=== PATIENT | male | born 1960 | race Caucasian/White ===

== ENCOUNTER 2016-06-17 00:28 | Emergency (ER) | payer OTHER ==
--- NOTE | 2016-06-17 04:16 | DIAGNOSTIC IMAGING REPORT ---
PROCEDURE: XR CHEST 1 VIEW INDICATION: CHEST PAIN TECHNIQUE: Portable AP view (0050 hours). COMPARISON: None. FINDINGS: Allowing for suboptimal inspiration, lungs are clear. Heart and mediastinum are normal. Thorax is normal. IMPRESSION: 1. Negative chest.
--- NOTE | 2016-06-17 08:43 | ED CLINICAL REPORT ---
Clinical Report - Physicians/Mid Levels [facility] [address] [place] [address] 06/17/2016 0:29 Patient: LAWANDA WHITFIELD Time Seen: 00:41. Arrived- By private vehicle. Historian- patient. HISTORY OF PRESENT ILLNESS Chief Complaint: CHEST PAIN. At its maximum, severity described as 3 / 10. When seen in the E.D., severity described as 0 / 10. Modifying factors- worsened by movement. It is described as aching and it is described as located in the central chest area and radiating to the left upper extremity (earlier this evening). This started about 24 hours ago and is now gone. It was abrupt in onset and has been intermittent and waxing/waning. Onset during heavy exertion. The patient has had nausea. No vomiting, difficulty breathing or diaphoresis. Similar symptoms previously: None. REVIEW OF SYSTEMS No chills, fever, sweats, calf pain or cough. No difficulty breathing, pedal edema, palpitations, abdominal pain or black stools. No bloody stools, constipation, diarrhea or vomiting. The patient has had fatigue, nausea, frequency and diabetic symptoms, including polyuria and fatigue. All systems otherwise negative, except as recorded above. PAST HISTORY Negative. PCP - Eva. Problems: no known problems. Additional Surgeries: no known surgeries. Medications: None. Allergies: No Known Drug Allergy. SOCIAL HISTORY Never smoker. No alcohol use or drug use. Is a local resident. He lives with spouse. FAMILY HISTORY Cancer in first-degree relative (father). ADDITIONAL NOTES The nursing notes have been reviewed. PHYSICAL EXAM Vital Signs: 06/17/2016 00:31 BP: 165/102. HR: 88. RR: 20. O2 saturation: 98%. Pain level now: 3/10. Have been reviewed. Appearance: Alert. Eyes: Pupils equal, round and reactive to light. ENT: Pharynx normal. Neck: Normal inspection. CVS: Normal heart rate and rhythm. Heart sounds normal. Respiratory: No respiratory distress. Breath sounds normal. Abdomen: Soft and nontender. Bowel sounds normal. No organomegaly. No mass. Back: Normal external inspection. Skin: Skin warm and dry. Normal skin color. Normal skin turgor. Extremities: Extremities exhibit normal ROM. No calf tenderness. No lower extremity edema. LABS, X-RAYS, AND EKG EKG: No acute process. Normal EKG. Rate: 90. Prior EKG unavailable. The study has been independently viewed by me. Chest X-ray: No acute disease. The X-rays were independently viewed by me. Laboratory Tests: UA-Culture if indicated: (SAVANA: 06/17/2016 01:20) ( [facility] [place]17[place] 01:50) Final results Test Result Flag Units (Reference) URINE COLOR YELLOW URINE APPEARANCE CLEAR URINE GLUCOSE 2+ (NEGATIVE) URINE BILIRUBIN NEGATIVE (NEGATIVE) URINE KETONE NEGATIVE (NEGATIVE) URINE SPECIFIC GRAVITY >= 1.030 (1.010-1.030) URINE PH 6.0 (5.0-8.0) URINE PROTEIN NEGATIVE (NEGATIVE) URINE UROBILINOGEN 0.2 EU/dL (0.2-1.0) URINE NITRITE NEGATIVE (NEGATIVE) URINE BLOOD NEGATIVE (NEGATIVE) URINE LEUK ESTERASE NEGATIVE (NEGATIVE) URINE RBC RARE rbc/hpf (0-1) URINE WBC RARE wbc/hpf (0-1) URINE EPITHELIAL CELLS NONE SEEN EPI/hpf (0-5) URINE BACTERIA NONE SEEN (NONE SEEN) URINE COMMENT CULT NOT INDICATED URINE CULTURES ARE SET-UP BASED ON THE FOLLOWING CRITERIA:POSITIVE NITRITEPOSITIVE LEUKOCYTE ESTERASEGREATER THAN 10 WHITE BLOOD CELLSMODERATE (2+) OR GREATER BACTERIA CBC w Diff: (SAVANA: 06/17/2016 00:35) ( [facility] [place] 06/17/2016 00:51) Final results Test Result Flag Units (Reference) WHITE BLOOD COUNT 7.1 K/uL (4.5-11.5) RED BLOOD COUNT 5.01 M/uL (4.50-5.90) HEMOGLOBIN 14.8 gm/dL (13.5-17.5) HEMATOCRIT 43.9 % (41.0-53.0) MEAN CELL VOLUME 88 fL (80-100) MEAN CORPUSCULAR HGB 30 pg (26-34) MEAN CORPUSCULAR HGB CONC 34 g/dL (31-37) RED CELL DISTRIBUTION WIDTH 13.1 % (11.6-14.8) PLATELET COUNT 290 K/uL (150-400) NEUTROPHIL % 48.7 L % (50-75) LYMPH % 36.4 % (25-40) MONO % 10.8 % (3-14) EOSINOPHIL % 3.8 % (0-4) BASOPHIL % 0.3 % (0-2) CPK: (SAVANA: 06/17/2016 06:25) ( MsgRcvd 06/17/2016 06:58) Final results Test Result Flag Units (Reference) CPK 74 U/L (24-260) TROPONIN I <0.05 L ng/mL (0.00-1.5) TROPONIN REFERENCE RANGE:<0.1 NEGATIVE0.1-1.5 INDETERMINANT>1.5 POSITIVE CMP: (ASVANA: 06/17/2016 00:35) ( VagRcvd 06/17/2016 01:05) Final results Test Result Flag Units (Reference) GLUCOSE 257 H mg/dL (70-110) BUN 21 H mg/dL (7-18) CREATININE 1.1 mg/dL (0.6-1.3) Estimated GFR >60 mL/min Estimated GFR- >60 mL/min Note: Persistent reduction over 3 months in eGFR<60 mL/min/1.73 m2 defines CKD. Patients with eGFR values>=60 mL/min/1.73 m2 may also have CKD if evidence ofpersistent proteinuria. Additional information may be foundat www.kidney.org. SODIUM 139 mmol/L (136-145) POTASSIUM 3.8 mmol/L (3.5-5.1) CHLORIDE 104 mmol/L (98-107) CARBON DIOXIDE 25 mmol/L (21-32) CALCIUM 8.9 mg/dL (8.5-10.1) TOTAL PROTEIN 7.0 g/dL (6.4-8.2) ALBUMIN 3.9 g/dL (3.3-5.0) BILIRUBIN, TOTAL 0.3 mg/dL (0.0-1.0) ALKALINE PHOSPHATASE 81 U/L (46-116) AST (SGOT) 18 U/L (15-37) ALT (SGPT) 45 U/L (12-78) LIPASE 228 U/L (73-393) AMYLASE 37 U/L (25-115) CPK 86 U/L (24-260) TROPONIN I <0.05 L ng/mL (0.00-1.5) TROPONIN REFERENCE RANGE:<0.1 NEGATIVE0.1-1.5 INDETERMINANT>1.5 POSITIVE . PROGRESS AND PROCEDURES Course of Care: Patient is stable. Consult obtained from internal medicine. Dr. Quiroz - Neto has agreed to do a stress test for the patient today. Case discussed. Phone consult only. Will see patient in the hospital today. Patient/family counseled. Old medical records ordered. Old records unavailable. Disposition: Discharged. Condition: stable. CLINICAL IMPRESSION Chest pain. Type 2 diabetes with hyperglycemia. INSTRUCTIONS Rest. Avoid stimulants (such as cigarettes, coffee, cold medicines, sinus medicines, street drugs). (return to the front end technician at the hospital at 11:45 AM today. Your scheduled for a stress test at noon. Please arrive a bit early in order to go through registration as discussed.). Warnings: Further evaluation is necessary. GENERAL WARNINGS: Return or contact your physician immediately if your condition worsens or changes unexpectedly, if not improving as expected, or if other problems arise. Prescription Medications: Metformin 500 mg: take 1 orally every 24 hours. Dispense thirty (30). No refills. Understanding of the discharge instructions verbalized by patient. Follow-up with: Seun Thacker MD, [facility], , [facility], [address] [place] [address] Follow up Tuesday in four days. Call for an appointment. (Electronically signed by Angelo Arrieta MD 06/18/2016 9:30)
--- NOTE | 2016-06-17 08:43 | ED CLINICAL REPORT ---
Clinical Report - Physicians/Mid Levels [facility] [address] [place] [address] 06/17/2016 0:29 Patient: LAWANDA WHITFIELD Time Seen: 00:41. Arrived- By private vehicle. Historian- patient. HISTORY OF PRESENT ILLNESS Chief Complaint: CHEST PAIN. At its maximum, severity described as 3 / 10. When seen in the E.D., severity described as 0 / 10. Modifying factors- worsened by movement. It is described as aching and it is described as located in the central chest area and radiating to the left upper extremity (earlier this evening). This started about 24 hours ago and is now gone. It was abrupt in onset and has been intermittent and waxing/waning. Onset during heavy exertion. The patient has had nausea. No vomiting, difficulty breathing or diaphoresis. Similar symptoms previously: None. REVIEW OF SYSTEMS No chills, fever, sweats, calf pain or cough. No difficulty breathing, pedal edema, palpitations, abdominal pain or black stools. No bloody stools, constipation, diarrhea or vomiting. The patient has had fatigue, nausea, frequency and diabetic symptoms, including polyuria and fatigue. All systems otherwise negative, except as recorded above. PAST HISTORY Negative. PCP - Eva. Problems: no known problems. Additional Surgeries: no known surgeries. Medications: None. Allergies: No Known Drug Allergy. SOCIAL HISTORY Never smoker. No alcohol use or drug use. Is a local resident. He lives with spouse. FAMILY HISTORY Cancer in first-degree relative (father). ADDITIONAL NOTES The nursing notes have been reviewed. PHYSICAL EXAM Vital Signs: 06/17/2016 00:31 BP: 165/102. HR: 88. RR: 20. O2 saturation: 98%. Pain level now: 3/10. Have been reviewed. Appearance: Alert. Eyes: Pupils equal, round and reactive to light. ENT: Pharynx normal. Neck: Normal inspection. CVS: Normal heart rate and rhythm. Heart sounds normal. Respiratory: No respiratory distress. Breath sounds normal. Abdomen: Soft and nontender. Bowel sounds normal. No organomegaly. No mass. Back: Normal external inspection. Skin: Skin warm and dry. Normal skin color. Normal skin turgor. Extremities: Extremities exhibit normal ROM. No calf tenderness. No lower extremity edema. LABS, X-RAYS, AND EKG EKG: No acute process. Normal EKG. Rate: 90. Prior EKG unavailable. The study has been independently viewed by me. Chest X-ray: No acute disease. The X-rays were independently viewed by me. Laboratory Tests: UA-Culture if indicated: (SAVANA: 06/17/2016 01:20) ( [facility] 06/17[facility]2016 01:50) Final results Test Result Flag Units (Reference) URINE COLOR YELLOW URINE APPEARANCE CLEAR URINE GLUCOSE 2+ (NEGATIVE) URINE BILIRUBIN NEGATIVE (NEGATIVE) URINE KETONE NEGATIVE (NEGATIVE) URINE SPECIFIC GRAVITY >= 1.030 (1.010-1.030) URINE PH 6.0 (5.0-8.0) URINE PROTEIN NEGATIVE (NEGATIVE) URINE UROBILINOGEN 0.2 EU/dL (0.2-1.0) URINE NITRITE NEGATIVE (NEGATIVE) URINE BLOOD NEGATIVE (NEGATIVE) URINE LEUK ESTERASE NEGATIVE (NEGATIVE) URINE RBC RARE rbc/hpf (0-1) URINE WBC RARE wbc/hpf (0-1) URINE EPITHELIAL CELLS NONE SEEN EPI/hpf (0-5) URINE BACTERIA NONE SEEN (NONE SEEN) URINE COMMENT CULT NOT INDICATED URINE CULTURES ARE SET-UP BASED ON THE FOLLOWING CRITERIA:POSITIVE NITRITEPOSITIVE LEUKOCYTE ESTERASEGREATER THAN 10 WHITE BLOOD CELLSMODERATE (2+) OR GREATER BACTERIA CBC w Diff: (SAVANA: 06/17/2016 00:35) ( [facility] 06/17/2016 00:51) Final results Test Result Flag Units (Reference) WHITE BLOOD COUNT 7.1 K/uL (4.5-11.5) RED BLOOD COUNT 5.01 M/uL (4.50-5.90) HEMOGLOBIN 14.8 gm/dL (13.5-17.5) HEMATOCRIT 43.9 % (41.0-53.0) MEAN CELL VOLUME 88 fL (80-100) MEAN CORPUSCULAR HGB 30 pg (26-34) MEAN CORPUSCULAR HGB CONC 34 g/dL (31-37) RED CELL DISTRIBUTION WIDTH 13.1 % (11.6-14.8) PLATELET COUNT 290 K/uL (150-400) NEUTROPHIL % 48.7 L % (50-75) LYMPH % 36.4 % (25-40) MONO % 10.8 % (3-14) EOSINOPHIL % 3.8 % (0-4) BASOPHIL % 0.3 % (0-2) CPK: (SAVANA: 06/17/2016 06:25) ( MsgRcvd 06/17/2016 06:58) Final results Test Result Flag Units (Reference) CPK 74 U/L (24-260) TROPONIN I <0.05 L ng/mL (0.00-1.5) TROPONIN REFERENCE RANGE:<0.1 NEGATIVE0.1-1.5 INDETERMINANT>1.5 POSITIVE CMP: (SAVANA: 06/17/2016 00:35) ( VtgRcvd 06/17/2016 01:05) Final results Test Result Flag Units (Reference) GLUCOSE 257 H mg/dL (70-110) BUN 21 H mg/dL (7-18) CREATININE 1.1 mg/dL (0.6-1.3) Estimated GFR >60 mL/min Estimated GFR- >60 mL/min Note: Persistent reduction over 3 months in eGFR<60 mL/min/1.73 m2 defines CKD. Patients with eGFR values>=60 mL/min/1.73 m2 may also have CKD if evidence ofpersistent proteinuria. Additional information may be foundat www.kidney.org. SODIUM 139 mmol/L (136-145) POTASSIUM 3.8 mmol/L (3.5-5.1) CHLORIDE 104 mmol/L (98-107) CARBON DIOXIDE 25 mmol/L (21-32) CALCIUM 8.9 mg/dL (8.5-10.1) TOTAL PROTEIN 7.0 g/dL (6.4-8.2) ALBUMIN 3.9 g/dL (3.3-5.0) BILIRUBIN, TOTAL 0.3 mg/dL (0.0-1.0) ALKALINE PHOSPHATASE 81 U/L (46-116) AST (SGOT) 18 U/L (15-37) ALT (SGPT) 45 U/L (12-78) LIPASE 228 U/L (73-393) AMYLASE 37 U/L (25-115) CPK 86 U/L (24-260) TROPONIN I <0.05 L ng/mL (0.00-1.5) TROPONIN REFERENCE RANGE:<0.1 NEGATIVE0.1-1.5 INDETERMINANT>1.5 POSITIVE . PROGRESS AND PROCEDURES Course of Care: Patient is stable. Consult obtained from internal medicine. Dr. Quiroz - Neto has agreed to do a stress test for the patient today. Case discussed. Phone consult only. Will see patient in the hospital today. Patient/family counseled. Old medical records ordered. Old records unavailable. Disposition: Discharged. Condition: stable. CLINICAL IMPRESSION Chest pain. Type 2 diabetes with hyperglycemia. INSTRUCTIONS Rest. Avoid stimulants (such as cigarettes, coffee, cold medicines, sinus medicines, street drugs). (return to the front end software engineer at the hospital at 11:45 AM today. Your scheduled for a stress test at noon. Please arrive a bit early in order to go through registration as discussed.). Warnings: Further evaluation is necessary. GENERAL WARNINGS: Return or contact your physician immediately if your condition worsens or changes unexpectedly, if not improving as expected, or if other problems arise. Prescription Medications: Metformin 500 mg: take 1 orally every 24 hours. Dispense thirty (30). No refills. Understanding of the discharge instructions verbalized by patient. Follow-up with: Seun Thacker MD, [facility], , [facility], [address] [place] [address] Follow up Tuesday in four days. Call for an appointment. (Electronically signed by Angelo Arrieta MD 06/18/2016 9:30)
--- NOTE | 2016-06-17 08:44 | ED NURSING NOTES ---
Clinical Report - Nurses [facility] [address] [place] [address] 06/17/2016 0:29 Patient: LAWANDA WHITFIELD TRIAGE Triage time 00:Jun 17 2016. Acuity: LEVEL 2. Chief Complaint: CHEST PAIN and LEFT ARM PAIN. 00:34 06/17/16. SEPSIS SCREEN: Sepsis Screen: negative. Negative (no infection suspected/documented). LATESHA COMA SCORE: Latesha Coma Scale: 15- eyes open spontaneously (4); best verbal response- oriented x 4 (5); best motor response- obeys commands (6). --00:34 Luisa Duran 00:31 06/17/16. BP: 165/102. HR: 88. RR: 20. O2 saturation: 98% on room air. Pain level now: 06/25. --00:34 Luisa Duran. Weight: 97.9 kg stated. Height/Length: 70 inches Per Patient. BMI: 31. --00:33 Luisa Duran. Medications None. --00:32 Luisa Duran. Medication/allergy information source: the patient. --00:34 Luisa Duran. Allergies No Known Drug Allergy. --00:32 Luisa Duran. History Arrived by private vehicle. Historian: patient. Accompanied by family. Primary physician (Eva). This started yesterday. ( Patient reports onset of chest heaviness and left arm pain yesterday while hiking. He reports that it has remained steady. Patient reports some nausea that started this morning.). He has had nausea. PAST MEDICAL HX: Immunizations: up-to-date. SOCIAL HX: Never smoker. No alcohol use or drug use. No infectious disease exposure. ABUSE ASSESSMENT: No report of abuse. FALL RISK ASSESSMENT: Fall risk assessment completed. No fall risk identified. NUTRITIONAL RISK ASSESSMENT: The nutritional risk assessment revealed no deficiencies. FUNCTIONAL ASSESSMENT: Functional assessment: no impairments noted. LEARNING NEEDS ASSESSMENT: The learning needs assessment revealed no barriers. SKIN INTEGRITY ASSESSMENT: Skin integrity risk assessment completed. No skin integrity risk identified. --00:34 Luisa Duran. PROBLEMS: no known problems. ADDITIONAL SURGERIES: no known surgeries. Interventions ID band on patient. To treatment room. --00:34 Luisa Duran. PHYSICAL ASSESSMENT 00:34 06/17/16. Ambulatory to room. Patient gowned. GENERAL / NEURO / PSYCH: Alert. Oriented X 4. Appears in no acute distress. HEENT: Mucous membranes are pink. RESPIRATORY: Respirations not labored. CVS: Normal sinus rhythm noted. Pulses within normal limits. EXTREMITIES: No lower extremity edema. SKIN: Skin is warm and dry. --00:34 Luisa Duran. NURSING PROGRESS NOTES The initial plan of care for this patient has been created This plan of care was discussed with the patient and spouse. equipment monitor phototypesetting, pulse oximeter and NIBP monitor placed on patient; monitor alarms on. Patient gowned. Head of bed elevated. Warming measures: blanket applied. Reassurance given to the patient. Two patient identifiers checked. Call light placed in reach. Side rails up x 1. Bed placed in lowest position. Brakes of bed on. Patient ready for evaluation- chart flagged and ED physician notified. --00:35 Luisa Duran 00:35 06/17/2016 Site #1 started via IV in the right antecubital space with an 20g angiocath, with aseptic technique and good blood return; one attempt. Blood drawn: rainbow set. Labeled in the presence of the patient and sent to the lab. Saline lock flushed with 10 mL saline. --00:35 Luisa Duran EKG time: (00:41). EKG was performed by jeanne chambers and shown to the ED physician. --00:42 Von Zuleta 01:09 06/17/16. BP: 133/91. HR: 85. RR: 20. O2 saturation: 97% on room air. Pain level now: 06/25. --01:10 Luisa Duran 01:10 06/17/16. ( Provider at bedside). --01:10 Luisa Duran 01:43 06/17/16. BP: 129/72. HR: 80. RR: 20. O2 saturation: 96% on room air. Pain level now: 06/25. --01:44 Luisa Duran 01:44 06/17/16. --01:44 Roger Luisa 02:07 06/17/2016 Started bag #1 1000 mL IV Fluids IV NS (Saline); at 1000 mL/hr over 30 minute(s) via site #1. Allergies verified and confirmed 5 rights. IV patency established. IV site checked: no pain, redness, or swelling. IV flushed thoroughly pre- and post-medication administration. --02:07 Luisa Duran Patient waiting for lab results. ( Plan of care discussed with patient and family, repeat troponin to be drawn at 0630). --02:16 Luisa Duran The patient is resting quietly. Overall patient status- he states feels better. --02:57 Luisa Duran 02:56 06/17/16. BP: 129/83. HR: 78. RR: 20. O2 saturation: 97% on room air. Pain level now: 04/27. --02:57 Luisa Duran 03:32 06/17/16. BP: 131/80. HR: 71. RR: 20. O2 saturation: 98% on room air. Pain level now: 04/27. --03:33 Luisa Duran The patient reports no complaints and he is resting quietly. --03:33 Luisa Duran ( Patient offered food and PO fluids per provider permission. Patient given warm blankets and lights dimmed.). --03:33 Luisa Duran The patient is sleeping. --04:12 Luisa Duran 04:11 06/17/16. BP: 119/67. HR: 74. RR: 20. O2 saturation: 96% on room air. --04:12 Luisa Duran The patient is resting quietly. --06:10 Luisa Duran 06:10 06/17/16. BP: 132/86. HR: 83. RR: 20. O2 saturation: 97% on room air. Pain level now: 0. --06:10 Luisa Duran 02:45 06/17/2016 IV Fluids IV NS Discontinued: bag #1 discontinued. Total amount infused: 500 mL. IV patency established. IV site checked: no pain, redness, or swelling. IV flushed thoroughly. --06:11 RogerGabino villalobosnah 06:30 06/17/16. ( Patient blood redrawn to repeat troponin and CPK. Blood drawn from IV located Right AC. Blood labeled and sent to lab. Patient has no complaints at this time.). --06:50 Luisa Duran 06:50 06/17/16. BP: 136/96. HR: 75. RR: 20. O2 saturation: 96% on room air. Pain level now: 0/10. --06:52 RogerLuisa villalobos Care transferred and report given (Lulu Gill RN). --07:09 Luisa Duran ( Assumed care, report from SHIRA Moran. Pt. resting quietly. Assisted to the BR, reports no CP. Awaiting POC.). --07:23 Lulu Pantoja R.N. 08:35 06/17/16. BP: 132/82. HR: 80. RR: 16. O2 saturation: 98%. --08:36 Lulu Pantoja R.N. DISPOSITION / DISCHARGE 09:04 06/17/2016 Site #1 removed upon discharge. Catheter intact. Pressure dressing applied. --09:04 Lulu Pantoja R.N. Departure time: 902. Condition at departure: improved and stable. Discharge instructions provided and reviewed with the patient. Reviewed warnings. Reviewed medication(s) side effects information. Reviewed referrals (Stress test today at 1145). Patient verbalized understanding. Written instructions provided in Irish. The patient was discharged by the physician. He was discharged home and accompanied by spouse. He left the Emergency Department ambulatory and via private vehicle. Spouse driving. FALL RISK ASSESSMENT: Fall risk assessment completed. No fall risk identified. --09:05 Lulu Pantoja R.N. 09:04 06/17/16. BP: 132/82. HR: 80. RR: 16. O2 saturation: 98%. Pain level now: 0/10. --09:05 Lulu Pantoja R.N. Locked/Released at 06/17/2016 9:06 by Lulu Pantoja R.N.
--- NOTE | 2016-06-17 08:44 | ED ORDER SUMMARY ---
..... Patient: LAWANDA WHITFIELD OrderSheet [facility] VisitID: [id number] [place] [address] 55y, M Registration Date/Time: 06/17/2016 ORDER SHEET Weight: 97.9 kg (stated) Allergies: No Known Drug Allergy GENERAL ORDERS: Chest 1V Urgent (00:06/17/2016 Hellen KAMARA) (Ack 0:44 IJurca ER Tech1) (0:54 GUnger) Fur Tanner (Continuous) (00:06/17/2016 Hellen KAMARA) (0:43 HSoule) (0:44 IJurca ER Tech1) CBC w Diff Urgent (:06/17/2016 Hellen KAMARA) (Ack 0:44 HSoule) (Ack 0:44 IJurca ER Tech1) (1:10 HSoule) CMP Urgent (00:06/17/2016 Hellen KAMARA) (Ack 0:44 IJurca ER Tech1) (Ack 0:44 HSoule) (1:10 HSoule) UA-Culture if indicated Urgent (00:06/17/2016 Hellen KAMARA) (Ack 0:44 IJurca ER Tech1) (Ack 0:44 HSoule) (2:06 HSoule) Amylase Urgent (00:06/17/2016 Hellen KAMARA) (Ack 0:44 IJurca ER Tech1) (Ack 0:44 HSoule) (1:10 HSoule) Lipase Urgent (00:06/17/2016 Hellen KAMARA) (Ack 0:44 IJurca ER Tech1) (Ack 0:44 HSoule) (1:10 HSoule) CPK Urgent (00:06/17/2016 Hellen KAMARA) (Ack 0:44 IJurca ER Tech1) (Ack 0:44 HSoule) (1:10 HSoule) Troponin-I Urgent (00:06/17/2016 Hellen KAMARA) (Ack 0:44 IJurca ER Tech1) (Ack 0:44 HSoule) (1:10 HSoule) Oxygen (2 L/min) (NC) (00:43 06/17/2016 Hellen KAMARA) (0:44 HSoule) (0:44 IJurca ER Tech1) Pulse oximeter (00:43 06/17/2016 Hellen KAMARA) (0:43 HSoule) (0:44 IJurca ER Tech1) EKG - ER Stat (00:43 06/17/2016 Hellen KAMARA) (0:43 HSoule) (Ack 0:44 IJurca ER Tech1) (0:44 IJurca ER Tech1) CPK (Please draw at 06:30) Urgent (02:07 06/17/2016 Hellen KAMARA) (Ack 2:13 IJmontana LEVIN Tech1) Troponin-I (Please draw at 06:30) Urgent (02:08 06/17/2016 Hellen KAMARA) (Ack 2:13 IJurcjeanne ER Tech1) - (Stress test at noon) (08:32 06/17/2016 Hellen KAMARA) (Ack 8:57 RKaruga) MEDICATION ORDERS: IV FLUIDS: IV Saline Lock (00:43 06/17/2016 Hellen KAMARA) (0:43 HSoule) IV NS with Normal Saline 1 Liter: initial bolus 500 mL (1000 mL/hr), then none - for X1 (NOW) (02:06 06/17/2016 HSoule verbal order read back to Hellen KAMARA) (2:07 HSoule) ORDER SHEET NOTES: [Electronically signed by Lulu Pantoja R.N. (09:06 06/17/2016)] [Electronically signed by Angelo Arrieta MD (09:30 06/18/2016)] [Electronically locked/signed by Lulu Pantoja R.N. (09:06 06/17/2016)]
--- NOTE | 2016-06-17 08:44 | ED ORDER SUMMARY ---
..... Patient: LAWANDA WHITFIELD OrderSheet [facility] VisitID: [id number] [place] [address] 55y, M Registration Date/Time: 06/17/2016 ORDER SHEET Weight: 97.9 kg (stated) Allergies: No Known Drug Allergy GENERAL ORDERS: Chest 1V Urgent (00:06/17/2016 Hellen KAMARA) (Ack 0:44 IJurca ER Tech1) (0:54 GUnger) Waiter/[employer] (Continuous) (00:06/17/2016 Hellen KAMARA) (0:43 HSoule) (0:44 IJurca ER Tech1) CBC w Diff Urgent (:06/17/2016 Hellen KAMARA) (Ack 0:44 HSoule) (Ack 0:44 IJurca ER Tech1) (1:10 HSoule) CMP Urgent (00:06/17/2016 Hellen KAMARA) (Ack 0:44 IJurca ER Tech1) (Ack 0:44 HSoule) (1:10 HSoule) UA-Culture if indicated Urgent (00:06/17/2016 Hellen KAMARA) (Ack 0:44 IJurca ER Tech1) (Ack 0:44 HSoule) (2:06 HSoule) Amylase Urgent (00:06/17/2016 Hellen KAMARA) (Ack 0:44 IJurca ER Tech1) (Ack 0:44 HSoule) (1:10 HSoule) Lipase Urgent (00:06/17/2016 Hellen KAMARA) (Ack 0:44 IJurca ER Tech1) (Ack 0:44 HSoule) (1:10 HSoule) CPK Urgent (00:06/17/2016 Hellen KAMARA) (Ack 0:44 IJurca ER Tech1) (Ack 0:44 HSoule) (1:10 HSoule) Troponin-I Urgent (00:06/17/2016 Hellen KAMARA) (Ack 0:44 IJurca ER Tech1) (Ack 0:44 HSoule) (1:10 HSoule) Oxygen (2 L/min) (NC) (00:43 06/17/2016 Hellen KAMARA) (0:44 HSoule) (0:44 IJurca ER Tech1) Pulse oximeter (00:43 06/17/2016 Hellen KAMARA) (0:43 HSoule) (0:44 IJurca ER Tech1) EKG - ER Stat (00:43 06/17/2016 Hellen KAMARA) (0:43 HSoule) (Ack 0:44 IJurca ER Tech1) (0:44 IJurca ER Tech1) CPK (Please draw at 06:30) Urgent (02:07 06/17/2016 Hellen KAMARA) (Ack 2:13 IJmontana LEVIN Tech1) Troponin-I (Please draw at 06:30) Urgent (02:08 06/17/2016 Hellen KAMARA) (Ack 2:13 IJurcjeanne ER Tech1) - (Stress test at noon) (08:32 06/17/2016 Hellen KAMARA) (Ack 8:57 RKaruga) MEDICATION ORDERS: IV FLUIDS: IV Saline Lock (00:43 06/17/2016 Hellen KAMARA) (0:43 HSoule) IV NS with Normal Saline 1 Liter: initial bolus 500 mL (1000 mL/hr), then none - for X1 (NOW) (02:06 06/17/2016 HSoule verbal order read back to Hellen KAMARA) (2:07 HSoule) ORDER SHEET NOTES: [Electronically signed by Lulu Pantoja R.N. (09:06 06/17/2016)] [Electronically signed by Angelo Arrieta MD (09:30 06/18/2016)] [Electronically locked/signed by Lulu Pantoja R.N. (09:06 06/17/2016)]
--- NOTE | 2016-06-18 09:31 | ED MAR SUMMARY ---
..... Medication Administration Record [facility] [address] [place] [address] Patient: LAWANDA WHITFIELD Visit ID: [id number] 55y, M Weight: 97.9 kg Height/Length: 70 in BMI: 31 ALLERGIES: No Known Drug Allergy Start 02:07 06/17/2016 Luisa Duran,, Stop 02:45 06/17/2016 Luisa Duran, Medication Administered: IV NS (SALINE), Dose: IV Fluids over 30 minute(s), Rate: 1000 mL/hr, Dispensed: 1000 mL bag, Site: #1 right AC. Medication Ordered: IV NS with Normal Saline 1 Liter: initial bolus 500 mL (1000 mL/hr), then none - for X1 (NOW).
--- NOTE | 2016-06-18 09:31 | ED MAR SUMMARY ---
..... Medication Administration Record [facility] [address] [place] [address] Patient: LAWANDA WHITFIELD Visit ID: [id number] 55y, M Weight: 97.9 kg Height/Length: 70 in BMI: 31 ALLERGIES: No Known Drug Allergy Start 02:07 06/17/2016 Luisa Duran,, Stop 02:45 06/17/2016 Luisa Duran, Medication Administered: IV NS (SALINE), Dose: IV Fluids over 30 minute(s), Rate: 1000 mL/hr, Dispensed: 1000 mL bag, Site: #1 right AC. Medication Ordered: IV NS with Normal Saline 1 Liter: initial bolus 500 mL (1000 mL/hr), then none - for X1 (NOW).
--- NOTE | 2016-06-18 09:31 | ED MED RECONCILIATION SUMMARY ---
Patient: LAWANDA WHITFIELD Medication Reconciliation Report [facility] VisitID: [id number] [address] [place] [address] 55y, M Registration Date/Time: 06/17/2016 Weight: 97.9 kg Height/Length: 70 in. BMI: 31.0 ALLERGIES: No Known Drug Allergy The patient's Home Medications are listed below: NONE. The source(s) of the original Home Medication information: patient The following Medications were given to the patient in the Emergency Department: IV NS IV Fluids bolus 0, then 1000 mL/hr, administered: 06/17/2016 2:07:00 AM The following Medications were prescribed to the patient: Metformin 500 mg: take 1 orally every 24 hours. Dispense thirty (30). No refills. -- Angelo Arrieta MD
--- NOTE | 2016-06-18 09:31 | ED DISCHARGE INSTRUCTIONS ---
Patient: LAWANDA WHITFIELD General Instructions [facility] VisitID: [id number] [place] [address] 55y, M Registration Date/Time: 06/17/2016 Chest pain. Type 2 diabetes with hyperglycemia. INSTRUCTIONS Rest. Avoid stimulants (such as cigarettes, coffee, cold medicines, sinus medicines, street drugs). (return to the front desk auxiliary at the hospital at 11:45 AM today. Your scheduled for a stress test at noon. Please arrive a bit early in order to go through registration as discussed.). Warnings: Further evaluation is necessary. GENERAL WARNINGS: Return or contact your physician immediately if your condition worsens or changes unexpectedly, if not improving as expected, or if other problems arise. Prescription Medications: Metformin 500 mg: take 1 orally every 24 hours. Dispense thirty (30). No refills. Understanding of the discharge instructions verbalized by patient. Follow-up with: Seun Thacker MD, [facility], , [place] [address] Follow up Tuesday in four days. Call for an appointment. ADDITIONAL INFORMATION Chest Pain, Uncertain Cause Chest pain can happen for a number of reasons. Sometimes the cause can not be determined. If yourcondition does not seem serious, and your pain does not appear to be coming from your heart, your doctor may recommend watching it closely. Sometimes the signs of a serious problem take more time to appear. Therefore, watch for the warning signs listed below. Home care After your visit, follow these recommendations: Rest today and avoid strenuous activity. Take any prescribed medicine as directed. Follow-up care Follow up with your doctor or this facility as instructed or if you do not start to feel better within 24 hours. Call 911 Get immediate medical attention if any of the following occur: A change in the type of pain: if it feels different, becomes more severe, lasts longer, or begins to spread into your shoulder, arm, neck, jaw or back Shortness of breath or increased pain with breathing Weakness, dizziness, or fainting Rapid heart beat Get prompt medical attention Call your doctor right away if any of the following occur: Cough with dark colored sputum (phlegm) or blood Fever of 100.4F(38C) or higher, or as directed by your health care provider Swelling, pain or redness in one leg You have been given the following additional information: Chest Pain, Uncertain Cause Rest. (Electronically signed by Angelo Arrieta MD 06/18/2016 9:30)
--- NOTE | 2016-06-18 09:31 | ED MED RECONCILIATION SUMMARY ---
Patient: LAWANDA WHITFIELD Medication Reconciliation Report [facility] VisitID: [id number] [address] [place] [address] 55y, M Registration Date/Time: 06/17/2016 Weight: 97.9 kg Height/Length: 70 in. BMI: 31.0 ALLERGIES: No Known Drug Allergy The patient's Home Medications are listed below: NONE. The source(s) of the original Home Medication information: patient The following Medications were given to the patient in the Emergency Department: IV NS IV Fluids bolus 0, then 1000 mL/hr, administered: 06/17/2016 2:07:00 AM The following Medications were prescribed to the patient: Metformin 500 mg: take 1 orally every 24 hours. Dispense thirty (30). No refills. -- Angelo Arrieta MD
--- NOTE | 2016-06-18 09:31 | ED DISCHARGE INSTRUCTIONS ---
Patient: LAWANDA WHITFIELD General Instructions [facility] VisitID: [id number] [place] [address] 55y, M Registration Date/Time: 06/17/2016 Chest pain. Type 2 diabetes with hyperglycemia. INSTRUCTIONS Rest. Avoid stimulants (such as cigarettes, coffee, cold medicines, sinus medicines, street drugs). (return to the front desk administrator at the hospital at 11:45 AM today. Your scheduled for a stress test at noon. Please arrive a bit early in order to go through registration as discussed.). Warnings: Further evaluation is necessary. GENERAL WARNINGS: Return or contact your physician immediately if your condition worsens or changes unexpectedly, if not improving as expected, or if other problems arise. Prescription Medications: Metformin 500 mg: take 1 orally every 24 hours. Dispense thirty (30). No refills. Understanding of the discharge instructions verbalized by patient. Follow-up with: Seun Thacker MD, [facility], , [place] [address] Follow up Tuesday in four days. Call for an appointment. ADDITIONAL INFORMATION Chest Pain, Uncertain Cause Chest pain can happen for a number of reasons. Sometimes the cause can not be determined. If yourcondition does not seem serious, and your pain does not appear to be coming from your heart, your doctor may recommend watching it closely. Sometimes the signs of a serious problem take more time to appear. Therefore, watch for the warning signs listed below. Home care After your visit, follow these recommendations: Rest today and avoid strenuous activity. Take any prescribed medicine as directed. Follow-up care Follow up with your doctor or this facility as instructed or if you do not start to feel better within 24 hours. Call 911 Get immediate medical attention if any of the following occur: A change in the type of pain: if it feels different, becomes more severe, lasts longer, or begins to spread into your shoulder, arm, neck, jaw or back Shortness of breath or increased pain with breathing Weakness, dizziness, or fainting Rapid heart beat Get prompt medical attention Call your doctor right away if any of the following occur: Cough with dark colored sputum (phlegm) or blood Fever of 100.4F(38C) or higher, or as directed by your health care provider Swelling, pain or redness in one leg You have been given the following additional information: Chest Pain, Uncertain Cause Rest. (Electronically signed by Angelo Arrieta MD 06/18/2016 9:30)
== END 2016-06-17 09:03 | disposition home or self-care (01) ==
LOC: ED SRH 00:28
DX: R07.9 Chest pain, unspecified (principal); E11.65 Type 2 diabetes mellitus with hyperglycemia
CPT/HCPCS: 90004; 90100; 90616; 92235; 92530; 92610; 95059

== ENCOUNTER 2016-06-17 12:53 | Outpatient (CLI) | payer OTHER | END 2016-06-17 23:00 | LOC: RT SRH 12:53 | PROC: 4A02XM4 Measurement of Cardiac Total Activity, External Approach (ICD-10-PCS; principal; 2016-06-17) | DX: R07.9 Chest pain, unspecified (principal) ==